=== PATIENT | male | born 1995 | race Caucasian/White ===

== ENCOUNTER 2019-03-25 21:50 | Emergency (ER) | payer OTHER, MEDICAID ==
[~2019-03-25] VITALS: Ht 182.9 cm; Wt 72.6 kg
[~2019-03-25 21:50] MED LIST: ALBUTEROL INHAL17 GM IH; DEPAKOTE500 MG PO; FOCALIN XR15 MG PO; HYDROCODONE-APA1 TA1 PO; TENEX1 MG PO; ZOFRAN ODT4 MG PO
[2019-03-25 22:35] VITALS: BP 108/60
== END 2019-03-25 22:37 | disposition home or self-care (01) ==
LOC: M.ERS 21:50
DX: S60.221A Contusion of right hand, initial encounter (principal); F90.9 Attention-deficit hyperactivity disorder, unspecified type; J45.909 Unspecified asthma, uncomplicated; Z88.8 Allergy status to other drugs, medicaments and biological substances; Z91.018 Allergy to other foods; W22.8XXA Striking against or struck by other objects, initial encounter; Y93.89 Activity, other specified; Y92.89 Other specified places as the place of occurrence of the external cause; Y99.8 Other external cause status